=== PATIENT | male | born 2000 | race Hispanic/Latino ===

== ENCOUNTER → 2023-04-18 | Emergency (ER) | payer OTHER ==
[~2023-04-18] VITALS: Ht 167.6 cm; Wt 72.6 kg
[~2023-04-18] MED LIST: IBUP-2070 PO
[2023-04-18 18:46] VITALS: BP 120/72; PULSE 81; RESP 17; O2SAT 98
== END ==
LOC: EDH 15:59
DX: S83.8X1A Sprain of other specified parts of right knee, initial encounter (principal); F32.A Depression, unspecified; X50.1XXA Overexertion from prolonged static or awkward postures, initial encounter; Y93.89 Activity, other specified; Y92.89 Other specified places as the place of occurrence of the external cause; Y99.8 Other external cause status
CPT/HCPCS: 73560